=== PATIENT | female | born 1965 | race Caucasian/White ===

== ENCOUNTER → 2021-08-08 | Outpatient (CLI) | payer OTHER ==
--- NOTE | 2021-08-09 08:16 | KCIC ---
STUDY: MRI of the left elbow without contrast INDICATION: Left elbow pain. COMPARISON: None. TECHNIQUE: Multiplanar MR imaging of the left elbow performed without the use of intravenous or intra -articular contrast. FINDINGS: Bones/cartilage: No fracture or focally aggressive marrow signal abnormality. Minimal degenerative ch anges at the radiocapitellar articulation seen as a small area of subchondral sclerosis on image 12 s eries 8. No active edema at this location. Musculotendinous: Intact biceps brachii and brachialis. Unremarkable triceps. Mild tendinosis at the common extensor origin. No tear or significant tendinosis at the common flexor origin. Muscular bulk and signal is within normal limits. Ligaments: Intact radial collateral ligament, lateral ulnar collateral ligament and annular ligament. The ulnar collateral ligament is intact. Nerves: Normal signal and size of the ulnar nerve with a well-maintained circumferential fat plane. Miscellaneous: No joint effusion or olecranon bursitis. IMPRESSION: 1. Mild tendinosis at the common extensor origin. No surrounding soft tissue or marrow edema to sugg est active epicondylitis. Unremarkable common flexor origin and rest of the major tendons around the elbow. 2. Intact radial and ulnar collateral ligaments. Minimal arthrosis at the radiocapitellar articulati on without associated subchondral marrow edema. Electronically signed by: CESAR BLAKELY MD (08/09/2021 8:14 AM) [id number]
== END ==
LOC: KCIC MRI 15:30
PROVIDERS: ATTEND Family Medicine
DX: M67.824 Other specified disorders of tendon, left elbow (principal); M25.522 Pain in left elbow
CPT/HCPCS: 73221